=== PATIENT | male | born 1965 | race Caucasian/White ===

== ENCOUNTER 2017-08-31 18:03 | Emergency (ER) | payer OTHER, SELFPAY ==
[~2017-08-31] VITALS: Ht 177.8 cm; Wt 93.0 kg
[2017-08-31 19:10] LABS: BASOPHILS # (AUTO) 0.03 x10^3/uL (0-0.1); BASOPHILS % (AUTO) 0 % (0-1); EOSINOPHILS # (AUTO) 0.18 x10^3/uL (0-0.4); EOSINOPHILS % (AUTO) 2 % (1-7); LYMPHOCYTES # (AUTO) 1.85 x10^3/uL (1-3.4); LYMPHOCYTES % (AUTO) 16 % (22-44); MD NO; MEAN CORPUSCULAR HEMOGLOBIN 31.4 pg (27.5-34.5); MEAN CORPUSCULAR HGB CONC 34.8 g/dL (33.2-36.2); MEAN CORPUSCULAR VOLUME 90.2 fL (81-97); MEAN PLATELET VOLUME 8.9 fL (7.4-10.4); MONOCYTES % (AUTO) 9 % (2-9); NEUTROPHILS # (AUTO) 8.62 x10^3/uL (1.8-6.8); NEUTROPHILS % (AUTO) 74 % (42-75); PLATELET COUNT 236 x10^3/uL (130-400); RED BLOOD COUNT 5.23 x10^6/uL (4.38-5.82); RED CELL DISTRIBUTION WIDTH 13.2 % (9.4-14.8)
[2017-08-31 19:20] LABS: ALBUMIN 4.6 g/dL (3.4-5.0); ANION GAP 8 mmol/L (5-15); CALCIUM 9.1 mg/dL (8.5-10.1); CHLORIDE 106 mmol/L (98-107)
[2017-08-31 19:21] LABS: CREATININE 0.94 mg/dL (0.7-1.3)
[2017-08-31] MEDS ORDERED: CAPTOPRIL 25 MG TABLET PO ONE (21:00)
[2017-08-31] MEDS ORDERED: KETOROLAC 30 MG/1 ML ONE (21:29)
[2017-08-31] MEDS ORDERED: HYDROmorphone 2 MG/ML, 1ML ONE (21:29)
[2017-08-31] MEDS ORDERED: KETOROLAC 30 MG/1 ML IM ONE (21:30)
[2017-08-31] MEDS ORDERED: HYDROmorphone 1 MG/ML, 1ML IM ONE (21:30)
[2017-08-31 22:31] VITALS: BP 142/96
== END 2017-08-31 23:01 | disposition home or self-care (01) ==
LOC: ED 22:30
DX: I10 Essential (primary) hypertension (principal); K08.89 Other specified disorders of teeth and supporting structures; F41.9 Anxiety disorder, unspecified
CPT/HCPCS: 36415; 80048; 82040; 85025; 93005; 96372; 99285; J1170; J1885